=== PATIENT | male | born 1975 | race Caucasian/White ===

== ENCOUNTER 2017-02-03 10:00 | Inpatient (IN) | payer OTHER ==
--- NOTE | ~2017-02-03 | A ---
[facility] Nutrition Therapy DATE: 02/05/17 Patient: KYARA FLEMING Physician: JOSY Address: [address] [facility] Room/Bed: [address], Zip: [place] [address] Admit Date: 02/03/17 Date of : [birth year] Height: 5 11 Weight: [phone] NUTRITIONAL ASSESSMENT: REASON: LOW BMI (18.8), 1 PT UNINTENTIONAL WEIGHT LOSS PATIENT ADMITTED FOR ETOH DETOX PMH: LONG HX ETOH ABUSE, HX RECURRENT DVTs Anthropometrics: HT: 5'11", WT: 135#, BMI: 18.8, %IBW: 78 Labs: 02/04/17- NA: 133, K: 2.9, GLU: 67 Meds: REMERON, COGENTIN, HALDOL, ZYPREXA, TRAZODONE, DETOX PROTOCOL, KCL Assessment: PATIENT IS A 42 Y/O MALE ADMITTED FOR ETOH DETOX. PATIENT IS CURRENTLY EMPLOYED, LIVES WITH HIS MOTHER, SMOKES 1 PPS, AND HAS HAD DAILY ETOH USE FOR LAST 2 YEARS. UPON ADMIT PATIENT STATED A POOR APPETITE WITH A 10# WEIGHT LOSS IN MONTHS, AND HAS ONLY BEEN SLEEPING 3HRS /NIGHT. SINCE ADMIT PATIENT NOTED TO HAVE CONFUSION AND AGGRESSIVE BEHAVIORS. HE IS CURRENTLY ON A 1:1 FOR SAFETY. PATIENT FELL YESTERDAY D/T UNSTEADY GAIT. NO INJURIES REPORTED ATT. CURRENT PSYCH MEDS AND REMERON MAY CAUSE AN INCREASE IN WEIGHT AND APPETITE. THIS RD SUSPECTS WEIGHT AND APPETITE WILL STABILIZE AND POSSIBLY INCREASE FOLLOWING DETOX. PATIENT IS ON A REGULAR DIET WITH LARGE PORTION ENTREES, AND RECEIVES ENSURE TID. Dx: UNINTENTIONAL WEIGHT LOSS R/T CURRENT CONDITION, DETOX AEB LOW BMI, <90% IBW, SELF-REPORTED WEIGHT LOSS AND DECREASED APPETITE, NUTRITIONAL RISK POINT Intervention: REGULAR DIET, LARGE PORTIONS, SUPPLEMENTS, MEDS PER MD, DETOX, PSYCH Monitoring, Evaluation and Goals: 1. ADEQUATE PO INTAKES >50% OF MEALS 2. PREVENT, CORRECT MICRO/MACRO NUTRIENT DEFICIENCIES 3. WEIGHT; PROMOTE A STEADY WEIGHT GAIN TOWARDS A HEALTHY BMI OF 19-25, PREVENT FURTHER LOSS MONITOR: WEIGHTS, LABS, PO/FLUID INTAKES Recommendations: 1. CONTINUE REGULAR DIET, LARGE PORTION ENTREES, AND ENSURE TID TOLERATED 2. ENCOURAGE ADEQUATE PO AND FLUID INTAKES 3. OBTAIN WEIGHTS ROUTINELY (HARSHR 3-4 DAYS) [facility] Nutrition Therapy DATE: 02/05/17 Patient: KYARA FLEMING Physician: JOSY Address: [address] [place] [address] Room/Bed: P204-1 [facility], Zip: [place] [address] Admit Date: 02/03/17 Date of : [birth year] Height: 5 11 Weight: [phone] TO F/U PER PROTOCOL AND PRN R/T PATIENT MILDLY COMPROMISED Respectfully, TAHIRA ANDRE, RD, LD Food and Nutritional Services [facility] cc: client file
--- NOTE | ~2017-02-03 | PA ---
Unit #: [id number] #: [id number] Patient: KYARA BAKER [id number] [place] [address] [id number] I MR#: [id number] NAME: KYARA BAKER. ROOM: [facility] Age: 42 Sex: M Admission Date: 02/03/2017 : 1975 Date of Assessment: 02/04/2017 Attending Physician: Gil Jara M.D. Admitting Physician: Gil Jara M.D. Primary Care Physician: Jacquelyn Baker [facility] PSYCHIATRIC ASSESSMENT INFORMANTS The patient reliability, fair informant and chart reliability, good. CHIEF COMPLAINT Alcohol abuse and withdrawal and depression. HISTORY OF PRESENT ILLNESS Mr. Kyara Baker is a 42-year-old white male, seen on , who presented with the above-mentioned complaint. The patient reports that he has been drinking one-fifth of vodka daily for the last 2 years. The patient reported that he is having significant withdrawal symptom. The patient scored 20 on CIWA score. Reported having increased depressive symptom. Denied any suicidal or homicidal ideation or psychotic symptom. The patient denied any use of any street drugs. Reported symptoms such as muscle cramping, abdominal cramping, diarrhea, depressed mood, headache, irritability, poor appetite, sleep problem, tremor, diarrhea, and muscle cramping. The patient denied any blackout, HIV, hepatitis, withdrawal symptom, or IV drug use. The patient reported longest period of sobriety 2 years, last period of sobriety in 2014. The patient reported tobacco use, age of onset 20; alcohol, age of onset 20; and marijuana, age of onset 20. Needing inpatient admission at this time for psychiatric stabilization. PAST PSYCHIATRIC HISTORY Remarkable for history of inpatient treatment for detox in 2013. FAMILY HISTORY AND SOCIAL HISTORY The patient has support from his mother. No known history of any abuse or legal problem. Significant history of alcohol abuse in mother, uncle, aunt, father, and niece. MEDICAL HISTORY Remarkable for history of blood clots. MEDICATION HISTORY The patient is on blood thinner. ALLERGIES No known drug allergies. SUBSTANCE ABUSE HISTORY Please see above. Unit #: [id number] #: [id number] Patient: KYARA BAKER REVIEW OF SYSTEMS HEENT: Eyes, clear. Ears, nose, mouth, and throat; clear. CARDIOVASCULAR: Unremarkable. RESPIRATORY: Unremarkable. GI: Unremarkable. : Unremarkable. SKIN: Unremarkable. LYMPH NODE: Unremarkable. NEUROLOGIC: Unremarkable. ENDOCRINE: Unremarkable. HEMATOLOGIC: Unremarkable. ALLERGIC/IMMUNOLOGIC: Unremarkable. MUSCULOSKELETAL: Muscle strength and tone, no atrophy or abnormal movement. Gait normal. MENTAL STATUS EXAMINATION CONSTITUTIONAL: Measurement of vital signs; temperature 98.7, heart rate 80, respiratory rate 18, oxygen saturation 97%, and blood pressure 139/83. Height 5 feet 11 inches and weight 135 pounds. GENERAL APPEARANCE: The patient dressed casually. The patient did not show any facial deformity. MUSCULOSKELETAL: Please see above. PSYCHIATRIC EXAMINATION Description of speech; regular rate, normal volume, normal articulation, and coherent. Description of thought process, goal directed. Description of association, intact. Description of abnormal psychotic thinking; the patient denied any hallucination or delusions, but mood lability, sad, depressed, and substance abuse. Description of the patient's judgment: Concerning everyday activity, poor. Social situation, poor. Concerning psychiatric condition, poor. Complete mental status examination; oriented in time, place, and person. Recent and remote memory, fair. Attention span and concentration, fair. Language, able to name object and repeat phrases. Fund of knowledge, aware of current event and passive vocabulary intact. Mood and affect, sad and dysphoric. Insight and judgment, fair to poor. ASSETS AND LIABILITIES Assets, the patient is articulate and able to take care of his ADL. Liability, history of depression and substance abuse. ADMITTING DIAGNOSES Psychiatric: Alcohol abuse disorder, severe, F10.20 and mood disorder, not otherwise specified, F32.9. Secondary diagnosis: Deferred. Medical diagnosis: History of blood clots. Stressors: Psychosocial stressors. PSYCHIATRIC PLAN AND TREATMENT GOAL AND DISCHARGE PLAN 1. Advised to admit the patient on the inpatient unit. Provide safe, supportive, and structured environment. 2. Ordered labs; CBC, CMP, UA, and UDS. 3. Medical consult to evaluate the patient's medical condition. 4. The patient to start with detox protocol and detox monitoring. Unit #: [id number] #: [id number] Patient: KYARA BAKER Continue with home medication. If needed, consider further adjustment of medication. 5. The patient to attend all the programing on the inpatient unit, group therapy, individual therapy, and chemical dependency group. TREATMENT GOAL To attain euthymic mood, gain insight into his problem, and learn coping skills. DISCHARGE PLAN Plan to stabilize the patient and consider followup in outpatient program. ESTIMATED LENGTH OF STAY 5 days. Dictated by... Gil Jara M.D. SHANE/juan TD: 02/04/2017 20:34 JOB #: [id number] PSYCHIATRIC ASSESSMENT Page 1 of 1 X Gil Jara MD X PSYCHIATRIC ASSESSMENT
--- NOTE | ~2017-02-03 | PN ---
Unit #: [id number] #: [id number] Patient: KYARA FLEMING [id number] [facility] [address] [place] [address] [id number] I MR#: [id number] NAME: KYARA FLEMING. ROOM: [facility] Age: 42 Sex: M Admission Date: 02/03/2017 : 1975 Attending Physician: Gil aJra M.D. Admitting Physician: Gil Jara M.D. Primary Care Physician: Jacquelyn EARLY PROGRESS NOTES DATE OF SERVICE: 02/08/2017 DISCUSSION Mr. Kyara Fleming is a 42-year-old male, seen on 02/08/2017. The patient was somewhat confused last night and wandering in the hallway. The patient received p.r.n. Zyprexa. The patient was detoxing from alcohol. The patient attempted to go into other people's room in the middle of the night. The patient was cooperative this morning, redirectable. Vital Signs; temperature 98.0, pulse 66, blood pressure 110/79. The patient did not show any aggression. The patient's Zyprexa, Haldol, Cogentin were stopped. Currently on Remeron and trazodone. REVIEW OF SYSTEMS Complete review of systems unremarkable. MENTAL STATUS EXAMINATION General appearance; the patient dressed casually, thin built. Attention span and concentration, poor. Oriented in place and person. Mood and affect, sad and dysphoric. Thought process, concrete. The patient denied any thoughts of harming self or others. Recent and remote memory, poor. Insight and judgment, poor. DIAGNOSES 1. Alcohol use disorder, severe. 2. Mood disorder, not otherwise specified. ASSESSMENT AND PLAN Advised to continue with current medication and therapeutic protocol. If needed, consider further adjustment of medication. Dictated by... Krissy Palumbo/juan TD: 02/10/2017 00:04 JOB #: [id number] Unit #: [id number] #: [id number] Patient: KYARA FLEMING PROGRESS NOTES Page 1 of 1 X Gil Jara MD PROGRESS NOTE
--- NOTE | ~2017-02-03 | PN ---
Unit #: [id number] #: [id number] Patient: KYARA FLEMING [id number] [facility] [address] [place] [address] [id number] I MR#: [id number] NAME: KYARA FLEMING. ROOM: P204 Age: 42 Sex: M Admission Date: 02/03/2017 : 1975 Attending Physician: Gil Jara M.D. Admitting Physician: Gil Jara M.D. Primary Care Physician: Jacquelyn EARLY PROGRESS NOTES DATE 02/07/2017 DISCUSSION Kyara Fleming is a 42-year-old male, seen on 02/07/2017. The patient interviewed, chart reviewed, and obtained information from the nursing staff. The patient making progress, affect bright, mood good, maintained safe behavior. The patient's vital signs, pulse 74, respirations 18, blood pressure 108/63. REVIEW OF SYSTEMS Complete review of systems unremarkable. MENTAL STATUS EXAMINATION General appearance: Patient dressed casually. Attention span and concentration, fair. Oriented in time, place, and person. Mood and affect, brighter. Speech, regular rate. Thought process, goal-directed. The patient denied any thoughts of harming self or others. Recent and remote memory, poor. Insight and judgment, poor. DIAGNOSIS Alcohol use disorder, severe. ASSESSMENT/PLAN Advised to continue with the current medication and therapeutic protocol, and if needed consider further adjustment of medication. Dictated by... Krissy Palumbo/keren TD: 02/09/2017 05:54 JOB #: [id number] Unit #: [id number] #: [id number] Patient: KYARA FLEMING PROGRESS NOTES Page 1 of 1 X Gil Jara MD X PROGRESS NOTE
--- NOTE | ~2017-02-03 | DS ---
Unit #: [id number] #: [id number] Patient: KYARA FLEMING [id number] [facility] [address] [place] [address] [id number] I MR#: [id number] NAME: KYARA FLEMING. ROOM: [facility] Age: 42 Sex: M Admission Date: 02/03/2017 : 1975 Discharge Date: 02/09/2017 Attending Physician: Gil Jara M.D. Primary Care Physician: Jacquelyn Esteves DISCHARGE SUMMARY REASON FOR ADMISSION Detox. DIAGNOSTIC STUDIES LABORATORY RESULTS: Remarkable for glucose of 67, sodium 133, potassium 2.9. Total bilirubin 5.0, AST , ALT 78. HOSPITAL COURSE The patient was admitted to inpatient unit on 02/03/2017 and discharged on 02/09/2017. The patient was followed by the medical doctor for abnormal labs, especially potassium. The patient was treated with chemical dependency group, psychoeducation, psychotherapy, and structured milieu. The patient was treated with Remeron and Zyprexa combination. Subsequently, the patient was discharged with a plan to follow up in outpatient clinic. DISCHARGE MEDICATIONS Remeron 15 mg at bedtime for mood symptom and Zyprexa 5 mg at bedtime for mood stabilization. DISCHARGE DIAGNOSES Psychiatric: 1. Alcohol use disorder, severe, F10.20. 2. Mood disorder, not otherwise specified, F32.9. Secondary diagnosis: Deferred. Medical diagnosis: History of blood clots. Stressors: Psychosocial stressors. DISCHARGE INSTRUCTIONS The patient to follow up in outpatient clinic as per social media manager. CONDITION ON DISCHARGE The patient was pleasant and cooperative. Denied any psychotic symptom or any suicidal ideation. PROGNOSIS Guarded. DIET AND ACTIVITY As tolerated. Unit #: [id number] #: [id number] Patient: KYARA FLEMING Dictated by... Krissy PalumboC/juan TD: 02/10/2017 02:41 JOB #: [id number] DISCHARGE SUMMARY Page 1 of 1 X Gil Jara MD X DISCHARGE SUMMARY
--- NOTE | ~2017-02-03 | HP ---
Unit #: [id number] #: [id number] Patient: KYARA FLEMING [id number] [place] [address] [id number] I MR#: [id number] NAME: KYARA FLEMING. ROOM: P204 Age: 42 Sex: M Admission Date: 02/03/2017 : 1975 Attending Physician: Gil Jara M.D. Admitting Physician: Gil Jara M.D. Primary Care Physician: Jacquelyn Esteves HISTORY AND PHYSICAL HISTORY OF PRESENT ILLNESS Kyara is a 42 year old admitted to [address] [place] [address] because of his abuse of alcohol. PAST MEDICAL HISTORY 1. Long history of alcohol abuse. 2. History of recurrent DVTs. a. Chronic anti-coagulation. PAST SURGICAL HISTORY Cholecystectomy. ALLERGIES Aspirin. SOCIAL HISTORY Smokes greater than 1 pack per day. Drinks at least a fifth of liquor every 2 days and denies illicit drug use. FAMILY HISTORY Medically noncontributory. REVIEW OF SYSTEMS CONSTITUTIONAL: No fever or chills. HEENT: Denies any sore throat, ear pain or runny nose. CARDIOVASCULAR: Denies chest pain, irregular heart rhythm or palpitations. CHEST: Denies shortness of breath or cough. No hemoptysis. GASTROINTESTINAL: Denies nausea, vomiting, diarrhea or chronic constipation. ENDOCRINE: Denies history of increased thirst or urination. No recent significant weight loss or gain. GENITOURINARY: Denies dysuria, frequency, or hematuria. SKIN: Denies any rashes. HEMATOLOGIC: Denies history of increased bleeding or bruising. MUSCULOSKELETAL: Denies any hot, swollen joints. No generalized muscle pain. NEUROLOGIC: Denies problems with vision or speech. No frequent, severe headaches. No numbness, tingling or weakness in any extremities. Denies loss of bladder or bowel control. CURRENT MEDICATIONS 1. Detox protocol. 2. Xarelto 20 mg daily. Unit #: [id number] #: [id number] Patient: KYARA FLEMING 3. Remeron 15 mg q.h.s. PHYSICAL EXAMINATION GENERAL: Alert, well-nourished, in no apparent distress. VITAL SIGNS: Blood pressure 140/82, heart rate 80, respirations 16, temperature 98.6. WEIGHT: 135. HEIGHT: 5 feet 11 inches. SKIN: Warm and dry without rash or lesion. HEENT: Normocephalic. TMs not viewed. Oral and nasal passages clear. Conjunctivae clear. PERRLA. EOMs intact. NECK: Supple without lymphadenopathy or thyromegaly. HEART: Regular rate and rhythm without murmur. LUNGS: Clear. ABDOMEN: Soft, nontender. : Not done. EXTREMITIES: No evidence of cyanosis, clubbing or edema. Moves all without focal deficit. NEUROLOGICAL: Grossly within normal limits. Cranial Nerves: II: Visual farley are intact. III, IV AND : Extraocular movements are intact. Pupils are equal, round and reactive to light. V: Facial sensation is grossly normal. VII: Facial movements and expression are normal. VIII: Auditory acuity grossly intact. IX, X: Uvula is midline. Phonation is normal. XI: Patient shrugs shoulders and turns head normally. XII: Tongue protrudes in the midline. Sensory and Motor Function: Sensory and motor sensation is grossly normal. Motor: moves all extremities well. Coordination: Gait is normal. Deep Tendon Reflexes: Intact. IMPRESSION Psychiatric admission. RECOMMENDATIONS PSYCHIATRIC: Per psychiatrist. MEDICAL: See no contraindication to participate in facility's activities. MEDICAL PROGNOSIS Good. MEDICAL CONDITION Stable. Dictated by... Karma Salvador PNoelleANoelle-Rebecca. for Krissy Lay/lashonda TD: 02/04/2017 16:07 JOB #: [id number] Unit #: [id number] #: [id number] Patient: KYARA FLEMING HISTORY AND PHYSICAL Page 1 of 1 X Karma Salvador HISTORY AND PHYSICAL
--- NOTE | ~2017-02-03 | PN ---
Unit #: [id number] #: [id number] Patient: KYARA FLEMING [id number] [facility] [address] [place] [address] [id number] MR#: [id number] NAME: KYARA FLEMING. ROOM: [facility] Age: 42 Sex: M Admission Date: 02/03/2017 : 1975 Attending Physician: Gil Jara M.D. Admitting Physician: Gil Jara M.D. Primary Care Physician: Jacquelyn EARLY PROGRESS NOTES DATE OF SERVICE: 02/05/2017 DISCUSSION Mr. Kyara Fleming is a 42-year-old male, seen on 02/05/2017. The patient is thin built and dressed in hospital attire, seemed somewhat unsteady, anxious, and nervous. Currently on one-to-one monitoring due to the patient's withdrawal symptoms. The patient's vital signs; temperature 98.5, pulse 74, blood pressure 108/63. The patient is still feeling anxious, nervous, tremulous. Currently on detox protocol. The patient yesterday became aggressive, hitting a staff and was unsteady. REVIEW OF SYSTEMS Complete review of systems unremarkable. MENTAL STATUS EXAMINATION General appearance, the patient dressed casually. Attention span and concentration were poor. Oriented in place and person. Mood and affect, labile. Speech, monotone. Thought process, concrete. The patient denied any thoughts of harming self or others, but guarded. Recent and remote memory, poor. Insight and judgment, poor. DIAGNOSES 1. Alcohol use disorder, severe. 2. Mood disorder, not otherwise specified. ASSESSMENT/PLAN Advised to continue with current medication and therapeutic protocol. Haldol was added yesterday. If needed, consider further adjustment of medication. Continue with one-to-one monitoring for safety. Dictated by... Krissy Palumbo/juan TD: 02/06/2017 22:12 JOB #: [id number] Unit #: [id number] #: [id number] Patient: KYARA FLEMING PROGRESS NOTES Page 1 of 1 X Gil Jara MD PROGRESS NOTE
--- NOTE | ~2017-02-03 | CO ---
Unit #: [id number] #: [id number] Patient: KYARA FLEMING [id number] [place] [address] [id number] I MR#: [id number] NAME: KYARA FLEMING. ROOM: P204 Age: 42 Sex: M Admission Date: 02/03/2017 : 1975 Attending Physician: Gil Jara M.D. Primary Care Physician: Jacquelyn Esteves Consultation Date: 02/04/2017 CONSULTATION REPORT SUBJECTIVE Kyara is a 42-year-old with recurrent DVTs and chronic anticoagulation therapy. He was examined and this was addressed under his admission H and P. Please see H and P dated 02/04/2017. Dictated by... Karma Salvador P.A.-C. for Krissy Lay/juan TD: 02/04/2017 20:41 JOB #: [id number] CONSULTATION REPORT Page 1 of 1 X Karma Salvador CONSULTATION REPORT
--- NOTE | ~2017-02-03 | PN ---
Unit #: [id number] #: [id number] Patient: KYARA FLEMING [id number] [facility] [address] [place] [address] [id number] I MR#: [id number] NAME: KYARA FLEMING. ROOM: P204 Age: 42 Sex: M Admission Date: 02/03/2017 : 1975 Attending Physician: Gil Jara M.D. Admitting Physician: Gil Jara M.D. Primary Care Physician: Jacquelyn EARLY PROGRESS NOTES DATE OF SERVICE 02/04/17 DISCUSSION Kyara Fleming is a 42-year-old male seen on 02/04/17. Patient interviewed, chart reviewed, I obtained information from nursing staff. Patient compliant, cooperative. Mood sad, dysphoric, anxious. Patient has tremors and reported still having withdrawal symptoms. Patient still feeling anxious, nervous. Vital signs: Pulse 80, blood pressure 139/83 COMPLETE REVIEW OF SYSTEMS Unremarkable. MENTAL STATUS EXAMINATION GENERAL APPEARANCE: Patient dressed casually. ATTENTION SPAN AND CONCENTRATION: Fair. Oriented in place and person. MOOD AND AFFECT: Labile. SPEECH: Monotone. THOUGHT PROCESS: [place]. Patient denied any thoughts of harming self or others, but sad, depressed, anxious. RECENT AND REMOTE MEMORY: Poor. INSIGHT AND JUDGMENT: Poor. DIAGNOSES Alcohol use disorder, severe Mood disorder, NOS ASSESSMENT/PLAN Advised to continue with current medication and therapeutic protocol. If needed, consider further adjustment in medication. Dictated by... Krissy Palumbo/whitney TD: 02/04/2017 23:32 Unit #: [id number] #: [id number] Patient: KYARA FLEMING JOB #: [id number] [facility] PROGRESS NOTES Page 1 of 1 X Gil Jara MD X PROGRESS NOTE
--- NOTE | ~2017-02-03 | PN ---
Unit #: [id number] #: [id number] Patient: KYARA FLEMING [id number] [facility] [address] [place] [address] [id number] I MR#: [id number] NAME: KYARA FLEMING. ROOM: P204 Age: 42 Sex: M Admission Date: 02/03/2017 : 1975 Attending Physician: Gil Jara M.D. Admitting Physician: Gil Jara M.D. Primary Care Physician: Jacquelyn EARLY PROGRESS NOTES DATE OF SERVICE: 02/06/2017 DISCUSSION Mr. Kyara Fleming is a 42-year-old male, seen on 02/06/2017. The patient was compliant and cooperative, still some confused, but making progress. No agitation or aggression. The patient was able to answer questions appropriately. Sleeping good. Tolerating medication fairly well. Did not require any medication for . Vital signs; blood pressure 110/63, heart rate 82. REVIEW OF SYSTEMS Complete review of systems unremarkable. MENTAL STATUS EXAMINATION General appearance, the patient dressed casually. Attention span and concentration, fair. Oriented in place and person. Mood and affect, sad and dysphoric. Speech, monotone. Thought process, concrete. The patient denied any thoughts of harming self or others, but guarded. Recent and remote memory, poor. Insight and judgment, poor. DIAGNOSES 1. Alcohol use disorder, severe. 2. Mood disorder, not otherwise specified. ASSESSMENT/PLAN Advised to continue with current medication and therapeutic protocol. If needed, consider further adjustment of medication. Dictated by... Krissy Palumbo/juan TD: 02/08/2017 00:14 JOB #: [id number] Unit #: [id number] #: [id number] Patient: KYARA FLEMING NNEKA PROGRESS NOTES Page 1 of 1 X Gil Jara MD PROGRESS NOTE
[~2017-02-03 10:00] MED LIST: IBUPROFEN PO
[2017-02-04 09:41] LABS: BASOPHIL# 0.1 X10e3 (0-0.3); BASOPHIL% 1.2 % (0-2.5); EOSINOPHIL# 0.2 X10e3 (0-0.7); EOSINOPHIL% 3.8 % (0.0-7.0); HEMATOCRIT 40.3 % (38.0-50.0); HEMOGLOBIN 13.7 gm/dL (13.0-16.0); LYMPHOCYTE# 1.6 X10e3 (1.0-3.5); LYMPHOCYTE% 25.9 % (17.0-45.0); MEAN CELL VOLUME 98.6 FL (83-96); MEAN CORPUSCULAR HEMOGLOBIN 33.5 PG (28-34); MEAN PLATELET VOLUME 10.5 FL (6.5-11.5); MONOCYTE# 0.6 X10e3 (0-1.0); MONOCYTE% 9.1 % (3.0-12.0); NEUTROPHIL# 3.8 X10e3 (1.5-7.1); RED BLOOD COUNT 4.09 X10e (3.90-5.60); RED CELL DISTRIBUTION WIDTH 15.8 % (11.0-15.5); WHITE BLOOD COUNT 6.3 X10e3 (4.0-10.5)
[2017-02-04 10:21] LABS: ALBUMIN SERUM 3.6 g/dL (3.5-5.0); BUN/CREATININE RATIO 12.85; CALCIUM SERUM 8.5 mg/dL (8.4-10.2); CREATININE SERUM 0.7 mg/dL (0.6-1.4); GLOM FILT RATE Estimated 118.1 mL/min (>60); PROTEIN TOTAL SERUM 6.5 g/dL (6.0-8.3)
[2017-02-04 10:29] LABS: POTASSIUM 2.9 mmol/L (3.5-5.1)
[2017-02-04 10:59] LABS: URINE APPEARANCE CLEAR; URINE COLOR DK YELLOW; URINE GLUCOSE NEG (NEG); URINE KETONE NEG (NEG); URINE LEUKOCYTE ESTERASE NEG (NEG); URINE NITRATE NEG (NEG); URINE PH 6.5 (5-8); URINE PROTEIN NEG (NEG); URINE SPECIFIC GRAVITY 1.006 (1.003-1.035)
[2017-02-04 11:20] LABS: URINE BILIRUBIN NEG (NEG); URINE BLOOD NEG (NEG)
[2017-02-04 11:29] LABS: DIFF IND YES; PLATELET COUNT 47 X10e3 (140-420)
[2017-02-04 11:32] LABS: AMPHETAMINE NEG (NEG); BARBITURATES NEG (NEG); BENZODIAZEPINES NEG (NEG); COCAINE NEG (NEG); MARIJUANA NEG (NEG); OPIATES NEG (NEG); TRICYCLIC ANTIDEPRESSANTS NEG (NEG); U METHADONE NEG (NEG)
[2017-02-04 11:34] LABS: PLATELET ESTIMATE DECREASED (NORMAL)
[2017-02-04 11:35] LABS: ANISOCYTOSIS SL
== END 2017-02-09 11:00 | disposition home or self-care (01) | DRG 897 ==
LOC: P2S 13:35
PROVIDERS: Psychiatry & Neurology Psychiatry
PROC: HZ2ZZZZ Detoxification Services for Substance Abuse Treatment (ICD-10-PCS; principal; 2017-02-03)
DX: F10.20 Alcohol dependence, uncomplicated (principal); F39 Unspecified mood [affective] disorder; Z86.718 Personal history of other venous thrombosis and embolism; Z79.01 Long term (current) use of anticoagulants
CPT/HCPCS: 80053; 80307; 81003; 85025; J0515; J1630; J2060